=== PATIENT | female | born 1965 | race Hispanic/Latino ===

== ENCOUNTER → 2024-11-23 | Day surgery (SDC) | payer OTHER ==
[~2024-11-23] MED LIST: BIOTIN PO; CALCIUM CARBON500 MG PO; LIDOCAINE HCL 2% LOCAL INJ 5 ML SDV VIAL INJ ONE; METFORMIN HCL500 MG PO; MIDAZOLAM HCL 2 MG/2 ML VIAL ONE; OMEGA 3 1,0001 EACH PO; PROPOFOL IV EMULSION 10 MG/ML 20 ML VIAL ONE; VIT C PO; VIT D3 PO; ZYRTEC-D TABLE1 EACH PO
[2024-11-23] MEDS: LACTATED RINGER'S 1,000 ML ONE (09:42)
[2024-11-23 11:01] VITALS: TEMP 99.2
[2024-11-23 11:30] VITALS: BP 114/69; PULSE 59; RESP 16; O2SAT 99
== END | disposition home or self-care (01) ==
LOC: OR 07:22
PROVIDERS: ATTEND Internal Medicine Gastroenterology
DX: Z12.11 Encounter for screening for malignant neoplasm of colon (principal); E11.9 Type 2 diabetes mellitus without complications; Z79.84 Long term (current) use of oral hypoglycemic drugs
CPT/HCPCS: 45378; 93005; J2003; J2250; J2704; J7121